=== PATIENT | male | born 1995 | race Asian ===

== ENCOUNTER 2017-02-11 17:27 | Emergency (ER) | payer OTHER ==
--- NOTE | 2017-02-11 18:43 | RAD ---
INDICATION: Right-sided flank and lower rib pain COMPARISON: None TECHNIQUE: PA and lateral views of the chest and 3 views of the abdomen were obtained. FINDINGS: The heart and mediastinum are normal in size and contour. There is a density obscuring the right lung base localized to the posterior right lung base on the lateral view. Remaining visualized lungs are clear. Visualized bones are normal for the patient's age. Gas and stool is seen throughout the length of the colon. There is no evidence of free intraperitoneal air. IMPRESSION: DENSITY OBSCURING THE POSTERIOR RIGHT LUNG BASE COULD REPRESENT PNEUMONIA IN THE CORRECT CLINICAL SETTING.
[2017-02-11 18:47] LABS: Hematocrit 37 % (42-52); Hemoglobin 12.1 g/dl (14.0-18.0); Mean Corpuscular HGB Conc 33 g/dl (31-36); Mean Corpuscular Hemoglobin 20 pg (27-31); Mean Corpuscular Volume 63 fL (80-94); Mean Platelet Volume 9 um3 (7.4-10.4); Red Blood Count 5.98 10^6/ul (4.0-5.4); Red Cell Distribution Width 16 % (10.5-15); White Blood Count 16.2 10^3/ul (3.5-10.8)
[2017-02-11 18:48] LABS: Add Diff/Slide Review? Slide Review Added; Comments Flag Yes
[2017-02-11 18:52] LABS: Urine Bacteria Absent (Absent); Urine Bilirubin Negative (Negative); Urine Glucose Negative (Negative); Urine Nitrite Negative (Negative)
[2017-02-11 19:00] LABS: Albumin 4.3 g/dL (3.2-5.2); BUN/Creatinine Ratio 10.1 (8-20); Calcium 9.9 mg/dL (8.6-10.3); EGFR African American 138.8 (>60); EGFR Non-African American 107.9 (>60); Potassium 3.9 mmol/L (3.5-5.0); Total Bilirubin 1.2 mg/dL (0.2-1.0); Total Protein 8.3 g/dL (6.4-8.9)
--- NOTE | 2017-02-11 19:14 | ED ---
Complex/Multi-Sys Presentation - History Of Current Complaint Chief Complaint: EDFluSymptoms Time Seen by Provider: 02/11/17 18:05 PMH/Surg Hx/FS Hx/Imm Hx - Immunization History Date of Tetanus Vaccine: UTD Infectious Disease History: No Infectious Disease History: Denies: Traveled Outside the [place] in Last 30 Days - Social History Alcohol Use: Rare Substance Use Type: Reports: None Smoking Status (MU): Never Smoked Tobacco Physical Exam Vital Signs On Initial Exam: Initial Vitals Temp Pulse Resp BP Pulse Ox 98.7 F 105 16 109/68 97 02/11/17 17:36 02/11/17 17:36 02/11/17 17:36 02/11/17 17:36 02/11/17 17:36 - Sneha Coma Scale Coma Scale Total: 15 Diagnostics - Vital Signs Vital Signs Temp Pulse Resp BP Pulse Ox 02/11/17 17:36 98.7 F 105 16 109/68 97 - Laboratory Lab Results: Lab Results 02/11/17 02/11/17 02/11/17 Range/Units 18:20 18:37 18:37 WBC 16.2 H (3.5-10.8) 10^3/ul RBC 5.98 H (4.0-5.4) 10^6/ul Hgb 12.1 L (14.0-18.0) g/dl Hct 37 L (42-52) % MCV 63 L (80-94) fL MCH 20 L (27-31) pg MCHC 33 (31-36) g/dl RDW 16 H (10.5-15) % Plt Count 218 (150-450) 10^3/ul MPV 9 (7.4-10.4) um3 Neut % (Auto) 77.9 (38-83) % Lymph % (Auto) 10.5 L (25-47) % Lander % (Auto) 11.2 H (1-9) % Eos % (Auto) 0.2 (0-6) % Baso % (Auto) 0.2 (0-2) % Absolute Neuts (auto) 12.6 H (1.5-7.7) 10^3/ul Absolute Lymphs (auto) 1.7 (1.0-4.8) 10^3/ul Absolute Monos (auto) 1.8 H (0-0.8) 10^3/ul Absolute Eos (auto) 0 (0-0.6) 10^3/ul Absolute Basos (auto) 0 (0-0.2) 10^3/ul Absolute Nucleated RBC 0.01 10^3/ul Nucleated RBC % 0 Sodium 133 (133-145) mmol/L Potassium 3.9 (3.5-5.0) mmol/L Chloride 97 L (101-111) mmol/L Carbon Dioxide 26 (22-32) mmol/L Anion Gap 10 (2-11) mmol/L BUN 9 (6-24) mg/dL Creatinine 0.89 (0.67-1.17) mg/dL Est GFR ( Amer) 138.8 (>60) Est GFR (Non-Af Amer) 107.9 (>60) BUN/Creatinine Ratio 10.1 (8-20) Glucose 104 H (70-100) mg/dL Calcium 9.9 (8.6-10.3) mg/dL Total Bilirubin 1.20 H (0.2-1.0) mg/dL AST 86 H (13-39) U/L ALT 72 H (7-52) U/L Alkaline Phosphatase 69 (34-104) U/L Total Protein 8.3 (6.4-8.9) g/dL Albumin 4.3 (3.2-5.2) g/dL Globulin 4.0 (2-4) g/dL Albumin/Globulin Ratio 1.1 (1-3) Urine Color Yellow Urine Appearance Clear Urine pH 7.0 (5-9) Ur Specific [place] 1.019 (1.010-1.030) Urine Protein 1+(30 mg/dl) H (Negative) Urine Ketones 2+ H (Negative) Urine Blood Negative (Negative) Urine Nitrate Negative (Negative) Urine Bilirubin Negative (Negative) Urine Urobilinogen Negative (Negative) Ur Leukocyte Esterase Negative (Negative) Urine WBC (Auto) Trace(0-5/hpf) (Absent) Urine RBC (Auto) 2+(6-10/hpf) H (Absent) Urine Bacteria Absent (Absent) Urine Glucose Negative (Negative) Influenza A (Rapid) (Negative) Influenza B (Rapid) (Negative) 02/11/17 Range/Units 18:45 WBC (3.5-10.8) 10^3/ul RBC (4.0-5.4) 10^6/ul Hgb (14.0-18.0) g/dl Hct (42-52) % MCV (80-94) fL MCH (27-31) pg MCHC (31-36) g/dl RDW (10.5-15) % Plt Count (150-450) 10^3/ul MPV (7.4-10.4) um3 Neut % (Auto) (38-83) % Lymph % (Auto) (25-47) % Lander % (Auto) (1-9) % Eos % (Auto) (0-6) % Baso % (Auto) (0-2) % Absolute Neuts (auto) (1.5-7.7) 10^3/ul Absolute Lymphs (auto) (1.0-4.8) 10^3/ul Absolute Monos (auto) (0-0.8) 10^3/ul Absolute Eos (auto) (0-0.6) 10^3/ul Absolute Basos (auto) (0-0.2) 10^3/ul Absolute Nucleated RBC 10^3/ul Nucleated RBC % Sodium (133-145) mmol/L Potassium (3.5-5.0) mmol/L Chloride (101-111) mmol/L Carbon Dioxide (22-32) mmol/L Anion Gap (2-11) mmol/L BUN (6-24) mg/dL Creatinine (0.67-1.17) mg/dL Est GFR ( Amer) (>60) Est GFR (Non-Af Amer) (>60) BUN/Creatinine Ratio (8-20) Glucose (70-100) mg/dL Calcium (8.6-10.3) mg/dL Total Bilirubin (0.2-1.0) mg/dL AST (13-39) U/L ALT (7-52) U/L Alkaline Phosphatase (34-104) U/L Total Protein (6.4-8.9) g/dL Albumin (3.2-5.2) g/dL Globulin (2-4) g/dL Albumin/Globulin Ratio (1-3) Urine Color Urine Appearance Urine pH (5-9) Ur Specific [place] (1.010-1.030) Urine Protein (Negative) Urine Ketones (Negative) Urine Blood (Negative) Urine Nitrate (Negative) Urine Bilirubin (Negative) Urine Urobilinogen (Negative) Ur Leukocyte Esterase (Negative) Urine WBC (Auto) (Absent) Urine RBC (Auto) (Absent) Urine Bacteria (Absent) Urine Glucose (Negative) Influenza A (Rapid) Negative (Negative) Influenza B (Rapid) Negative (Negative) Result Diagrams: 02/11/17 18:37 02/11/17 18:37 Lab Statement: Any lab studies that have been ordered have been reviewed, and results considered in the medical decision making process. Discharge - Discharge Plan Referrals: [facility] - Job BROOKS [Primary Care Provider] -
--- NOTE | 2017-02-11 19:14 | ED ---
Influenza-Like Illness - HPI Summary HPI Summary: 22 male presents to ED with complaints of influenza like symptoms and right flank/side pain. Patient states he thinks he had the flu. 6 days ago he began having cough, sore throat, myalgias, nasal congestion and fevers. Since symptoms have improved some however still having intermittent fevers, productive cough with yellow/green mucus and nasal congestion. States he also began having right side rib/flank pain that worsened today when waking up from his nap around 5pm. States he has been having myalgias but this pain appeared to be worse. Pain has since resolved, described it as sharp and shooting. Denies urinary complaints, genitalia complaints, nausea, vomiting and constipation. Admits to having some diarrhea over the week but had normal bowel movement yesterday. Has been drinking fluids, but is experiencing loss of appetite. Denies difficulty breathing and chest pain. Admits to to some SOB with exertion "and walking up the hill at school". No other complaints. No PMHx. No medications other than tylenol as needed for fever/myalgias. Did not have flu shot this year. - History of Current Complaint Chief Complaint: EDFluSymptoms Time Seen by Provider: 02/11/17 18:05 Hx Obtained From: Patient Onset/Duration: Sudden Onset, Lasting Days, Still Present, Worse Since Severity: Moderate Associated Signs & Symptoms: Fever, Myalgia, Cough, Sore Throat, Nasal Congestion, Diarrhea - Allergy/Home Medications Allergies/Adverse Reactions: Allergies Allergy/AdvReac Type Severity Reaction Status Date / Time No Known Allergies Allergy Verified 02/11/17 20:47 PMH/Surg Hx/FS Hx/Imm Hx Endocrine/Hematology History: Denies: Hx Anticoagulant Therapy, Hx Diabetes Cardiovascular History: Denies: Hx Hypertension Respiratory History: Denies: Hx Asthma - Surgical History Surgery Procedure, Year, and Place: n/a - Immunization History Date of Tetanus Vaccine: UTD Immunizations Up to Date: Yes Infectious Disease History: No Infectious Disease History: Denies: Traveled Outside the [place] in Last 30 Days - Family History Known Family History: Positive: None - Social History Alcohol Use: Rare Substance Use Type: Reports: None Smoking Status (MU): Never Smoked Tobacco Review of Systems Positive: Fever, Chills, Fatigue Positive: Sore Throat, Nasal Discharge Cardiovascular: Negative Positive: Shortness Of Breath, Cough Positive: Diarrhea, Other - loss of appetite Positive: Myalgia, Other - right rib/side pain Skin: Negative Neurological: Negative All Other Systems Reviewed And Are Negative: Yes Physical Exam Triage Information Reviewed: Yes Vital Signs On Initial Exam: Initial Vitals Temp Pulse Resp BP Pulse Ox 98.7 F 105 16 109/68 97 02/11/17 17:36 02/11/17 17:36 02/11/17 17:36 02/11/17 17:36 02/11/17 17:36 Vital Signs Reviewed: Yes Appearance: Positive: Well-Appearing, No Pain Distress, Well-Nourished Skin: Positive: Warm, Skin Color Reflects Adequate Perfusion, Dry. Negative: Cold, Cyanosis @, Jaundiced, Pale, Erythema @ Head/Face: Positive: Normal Head/Face Inspection Eyes: Positive: Conjunctiva Clear ENT: Positive: Hearing grossly normal, Pharyngeal erythema - blood noted in pharynx, patient states just had a nose bleed, Nasal congestion, TMs normal, Tonsillar swelling, Uvula midline. Negative: Tonsillar exudate, Trismus Dental: Negative: Percussion Tenderness @, Cervical Lymphadenopathy Neck: Positive: Supple, Nontender, No Lymphadenopathy Respiratory/Lung Sounds: Positive: Clear to Auscultation, Breath Sounds Present , Decreased Breath Sounds - right lower lobe. Negative: Rales, Rhonchi, Wheezes Cardiovascular: Positive: Normal, RRR, Pulses are Symmetrical in both Upper and Lower Extremities, Other - pain is non reproducible in right rib/side when palpated. Negative: Murmur, Rub Abdomen Description: Positive: Nontender, Soft. Negative: CVA Tenderness (R), CVA Tenderness (L) Bowel Sounds: Positive: Present Musculoskeletal: Positive: Normal, Strength/ROM Intact Neurological: Positive: Normal, Sensory/Motor Intact, Alert, Oriented to Person Place, Time, Normal Gait - Sneha Coma Scale Coma Scale Total: 15 Diagnostics - Vital Signs Vital Signs Temp Pulse Resp BP Pulse Ox 02/11/17 17:36 98.7 F 105 16 109/68 97 - Laboratory Lab Results: Lab Results 02/11/17 02/11/17 02/11/17 Range/Units 18:20 18:37 18:37 WBC 16.2 H (3.5-10.8) 10^3/ul RBC 5.98 H (4.0-5.4) 10^6/ul Hgb 12.1 L (14.0-18.0) g/dl Hct 37 L (42-52) % MCV 63 L (80-94) fL MCH 20 L (27-31) pg MCHC 33 (31-36) g/dl RDW 16 H (10.5-15) % Plt Count 218 (150-450) 10^3/ul MPV 9 (7.4-10.4) um3 Neut % (Auto) 77.9 (38-83) % Lymph % (Auto) 10.5 L (25-47) % Bond % (Auto) 11.2 H (1-9) % Eos % (Auto) 0.2 (0-6) % Baso % (Auto) 0.2 (0-2) % Absolute Neuts (auto) 12.6 H (1.5-7.7) 10^3/ul Absolute Lymphs (auto) 1.7 (1.0-4.8) 10^3/ul Absolute Monos (auto) 1.8 H (0-0.8) 10^3/ul Absolute Eos (auto) 0 (0-0.6) 10^3/ul Absolute Basos (auto) 0 (0-0.2) 10^3/ul Absolute Nucleated RBC 0.01 10^3/ul Nucleated RBC % 0 Sodium 133 (133-145) mmol/L Potassium 3.9 (3.5-5.0) mmol/L Chloride 97 L (101-111) mmol/L Carbon Dioxide 26 (22-32) mmol/L Anion Gap 10 (2-11) mmol/L BUN 9 (6-24) mg/dL Creatinine 0.89 (0.67-1.17) mg/dL Est GFR ( Amer) 138.8 (>60) Est GFR (Non-Af Amer) 107.9 (>60) BUN/Creatinine Ratio 10.1 (8-20) Glucose 104 H (70-100) mg/dL Calcium 9.9 (8.6-10.3) mg/dL Total Bilirubin 1.20 H (0.2-1.0) mg/dL AST 86 H (13-39) U/L ALT 72 H (7-52) U/L Alkaline Phosphatase 69 (34-104) U/L Total Protein 8.3 (6.4-8.9) g/dL Albumin 4.3 (3.2-5.2) g/dL Globulin 4.0 (2-4) g/dL Albumin/Globulin Ratio 1.1 (1-3) Urine Color Yellow Urine Appearance Clear Urine pH 7.0 (5-9) Ur Specific [place] 1.019 (1.010-1.030) Urine Protein 1+(30 mg/dl) H (Negative) Urine Ketones 2+ H (Negative) Urine Blood Negative (Negative) Urine Nitrate Negative (Negative) Urine Bilirubin Negative (Negative) Urine Urobilinogen Negative (Negative) Ur Leukocyte Esterase Negative (Negative) Urine WBC (Auto) Trace(0-5/hpf) (Absent) Urine RBC (Auto) 2+(6-10/hpf) H (Absent) Urine Bacteria Absent (Absent) Urine Glucose Negative (Negative) Influenza A (Rapid) (Negative) Influenza B (Rapid) (Negative) 02/11/17 Range/Units 18:45 WBC (3.5-10.8) 10^3/ul RBC (4.0-5.4) 10^6/ul Hgb (14.0-18.0) g/dl Hct (42-52) % MCV (80-94) fL MCH (27-31) pg MCHC (31-36) g/dl RDW (10.5-15) % Plt Count (150-450) 10^3/ul MPV (7.4-10.4) um3 Neut % (Auto) (38-83) % Lymph % (Auto) (25-47) % Bond % (Auto) (1-9) % Eos % (Auto) (0-6) % Baso % (Auto) (0-2) % Absolute Neuts (auto) (1.5-7.7) 10^3/ul Absolute Lymphs (auto) (1.0-4.8) 10^3/ul Absolute Monos (auto) (0-0.8) 10^3/ul Absolute Eos (auto) (0-0.6) 10^3/ul Absolute Basos (auto) (0-0.2) 10^3/ul Absolute Nucleated RBC 10^3/ul Nucleated RBC % Sodium (133-145) mmol/L Potassium (3.5-5.0) mmol/L Chloride (101-111) mmol/L Carbon Dioxide (22-32) mmol/L Anion Gap (2-11) mmol/L BUN (6-24) mg/dL Creatinine (0.67-1.17) mg/dL Est GFR ( Amer) (>60) Est GFR (Non-Af Amer) (>60) BUN/Creatinine Ratio (8-20) Glucose (70-100) mg/dL Calcium (8.6-10.3) mg/dL Total Bilirubin (0.2-1.0) mg/dL AST (13-39) U/L ALT (7-52) U/L Alkaline Phosphatase (34-104) U/L Total Protein (6.4-8.9) g/dL Albumin (3.2-5.2) g/dL Globulin (2-4) g/dL Albumin/Globulin Ratio (1-3) Urine Color Urine Appearance Urine pH (5-9) Ur Specific [place] (1.010-1.030) Urine Protein (Negative) Urine Ketones (Negative) Urine Blood (Negative) Urine Nitrate (Negative) Urine Bilirubin (Negative) Urine Urobilinogen (Negative) Ur Leukocyte Esterase (Negative) Urine WBC (Auto) (Absent) Urine RBC (Auto) (Absent) Urine Bacteria (Absent) Urine Glucose (Negative) Influenza A (Rapid) Negative (Negative) Influenza B (Rapid) Negative (Negative) Result Diagrams: 02/11/17 18:37 02/11/17 18:37 Lab Statement: Any lab studies that have been ordered have been reviewed, and results considered in the medical decision making process. - Radiology chest/rib, abdomen xray Xray Interpretation: Positive (See Comments) Radiology Interpretation Completed By: Radiologist - Ultrasound No standard instances Ultrasound Interpretation: No Acute Changes - normal US of the RUQ Ultrasound Interpretation Completed By: Radiologist Re-Evaluation - Re-Evaluation First Eval Re-Evaluation Time: 18:40 Change: Unchanged - still feeling fine, no complaints, updated on imaging and lab results, aware of plan of action Flu Symptom Course/Dx - Course Course Of Treatment: chest, ribs and abdomen xray obtained showing pneumonia in RLL base. RUQ US obtained due to patient complaint of symptoms and elevated LFTs. No concern for renal calculi or gallbladder disease/calculi. Probable cause of pain due to pneumonia and muscle strain. Influenza swab obtained and negative. Monospot obtained and pending. Labs reveal elevated WBC and anemia. With elevation of LFTS. Hepatitis panel obtained and pending. Patient has thalesemmia anemia. Rest of labs unremarkable and normal urine. Appears to be suffering from pneumonia. Will treat with azithromycin and inhaler. Increase fluid intake and rest. Mucinex also suggested. Recheck and followup in 5 days, sooner if needed Aware of worsening signs and symptoms to watch out for and to return if occur. Patient agrees and understands. No other concerns or emergent etiolgoy at this time. Vitals normal. Will wait for pending lab results. - Diagnoses Differential Diagnosis/HQI/PQRI: Positive: Bronchitis, Influenza, Pneumonia, Upper Respiratory Infection, Other - mono, hepatitis, costochondirits, muscle strain Provider Diagnoses: Pneumonia Discharge - Discharge Plan Condition: Stable Disposition: HOME Prescriptions: Albuterol HFA INHALER* [Ventolin HFA Inhaler*] 1 - 2 puff INH Q6H PRN #1 mdi PRN Reason: Sob/Wheezing Azithromycin TAB* [Zithromax TAB (Z-LARISSA) 250 mg #6 tabs] 250 mg PO DAILY #4 tab Patient Education Materials: Muscle Strain (ED), Community Acquired Pneumonia ( ED) Referrals: [facility] - Job BROOKS [Primary Care Provider] - Additional Instructions: Take prescribed medication as directed until entire dose is finished. Use prescribed inhaler as needed. Recommend taking Mucinex for congestion over the next 5-7 days. Any new or worsening symptoms, or not improvement of symptoms please return and seek medical attention. Follow up with PCP in 5-7 days for re-check. Cover mouth when coughing, wash hands frequently, as this is contagious. Increase fluid intake and get plenty of rest. Ibuprofen will help with discomfort and muscle strains.
--- NOTE | 2017-02-11 19:56 | RAD ---
HISTORY: Right upper quadrant pain and elevated LFTs COMPARISONS: None TECHNIQUE: Multiple transverse and longitudinal ultrasound images were obtained of the right upper quadrant. FINDINGS: LIVER: The liver is normal in dimensions and echogenicity. Normal hepatic and portal venous blood flow is duplicated with color flow imaging. There is no gross intrahepatic biliary duct dilatation. GALLBLADDER AND EXTRAHEPATIC BILIARY DUCT: The gallbladder is normal in appearance without intraluminal stones or other soft tissue masses. There is no pericholecystic fluid or gallbladder wall thickening. The common bile duct measures a maximum diameter of 3 mm. PANCREAS: The portions of the pancreas not obscured by bowel gas are normal in appearance. RIGHT KIDNEY: The right kidney is normal in size, morphology and echogenicity. AORTA AND IVC: The visualized portions are normal in appearance and not pathologically dilated. IMPRESSION: Normal ultrasound of the right upper quadrant.
[2017-02-11] MEDS ORDERED: Azithromycin TAB* 250 MG PO ONE (20:26)
[2017-02-11 21:09] VITALS: BP 113/65
[2017-02-12 15:50] LABS: Mono Internal Control QC Line Present
== END 2017-02-11 21:08 | disposition home or self-care (01) ==
LOC: ED 17:27
DX: J18.9 Pneumonia, unspecified organism (principal); R50.9 Fever, unspecified; R05 Cough; J02.9 Acute pharyngitis, unspecified; R09.81 Nasal congestion; R19.7 Diarrhea, unspecified; R06.02 Shortness of breath
CPT/HCPCS: 36415; 71020; 74020; 76705; 80053; 80074; 81003; 81015; 85025; 86308; 87502; 99283; A9270-GY